=== PATIENT | male | born 1980 | race Caucasian/White ===

== ENCOUNTER 2017-11-18 06:23 | Day surgery (SDC) | payer OTHER ==
[~2017-11-18 06:23] MED LIST: Buffered Lidocaine 0.9% SYRIN* 5 ML/SYR SYRINGE INTRADERM ONE; NS 0.9% 1000 ML* 1,000 ML IV SCH
[2017-11-18] MEDS ORDERED: fentaNYL* 50 MCG/ML 2 ML VIAL (100 MCG VIAL) ONE (07:10)
[2017-11-18] MEDS ORDERED: Midazolam* 1 MG/ML 2 ML VIAL (2 MG) ONE ×2 (07:10→08:13)
[2017-11-18] MEDS ORDERED: Ondansetron ODT TAB* 4 MG ONE (07:19)
[2017-11-18] MEDS ORDERED: Famotidine IV* 10 MG/ML 2 ML (20 mg) ONE (07:20)
[2017-11-18] MEDS ORDERED: Tetracaine 0.5% OPTH.SOL 4 ML* 1 DROP BTL ONE (07:23)
[2017-11-18] MEDS ORDERED: Neomycin/Polymy/Dex OPHTH.OIN* 3.5 GM ONE (07:23)
[2017-11-18] MEDS ORDERED: BSS OPTH.SOL* BTL ONE (07:23)
[2017-11-18] MEDS ORDERED: Phenylephrine 2.5% OPTH.SOL* 2 ML BTL ONE (07:23)
[2017-11-18] MEDS ORDERED: Dexamethasone IV* 4 MG/ML 1 ML (4 MG) ONE ×2 (07:33→07:50)
[2017-11-18] MEDS ORDERED: Propofol* 10 MG/ML 20 ML BTL IV PUSH ONE (07:33)
[2017-11-18] MEDS ORDERED: Lidocaine 2% MPF* 2 ML VIAL ONE ×2 (07:33→07:42)
[2017-11-18] MEDS ORDERED: Ketorolac INJ* 30 MG/ML 1 ML VIAL ONE (07:42)
[2017-11-18] MEDS ORDERED: DiMENhydriNATE IV* 50 MG/ML VIAL ONE (07:50)
[2017-11-18] MEDS ORDERED: PROCHLORPERAZINE INJ 5 MG/ML 2 ML VIAL IV PRN (07:57)
[2017-11-18] MEDS ORDERED: Levalbuterol 0.63MG/3ML NEB* UNIT OF USE INH PRN (07:57)
[2017-11-18] MEDS ORDERED: Ondansetron INJ* 2 MG/ML VIAL IV PRN (07:57)
[2017-11-18] MEDS ORDERED: fentaNYL* 50 MCG/ML 2 ML VIAL (100 MCG VIAL) IV PRN (07:57)
[2017-11-18] MEDS ORDERED: Naloxone* 0.4 MG/ML 1 ML VIAL IV PRN (07:57)
[2017-11-18] MEDS ORDERED: Acetaminophen TAB* 325 MG PO PRN (07:57)
[2017-11-18] MEDS ORDERED: HYDROcodone/ACETAMIN 5-325 MG* 1 TAB PO PRN (07:57)
[2017-11-18] MEDS ORDERED: Ondansetron ODT TAB* 4 MG PO PRN (07:57)
[2017-11-18 09:23] VITALS: BP 117/92
--- NOTE | 2017-11-19 06:17 | OP ---
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 ANESTHESIA: General. 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 POST-OP DIAGNOSIS: Consecutive exotropia of 8 prism diopters. OPERATIVE PROCEDURE: Recess lateral rectus muscle, right eye 4.0 mm. BLOOD LOSS: Minimum. DESCRIPTION OF PROCEDURE: The patient was brought to the operating room and received general anesthesia. A drop of tetracaine and a drop of phenylephrine were placed in each eye. The patient was prepped and draped in the usual sterile fashion for ophthalmic surgery. As the patient had previous eye muscle surgery and we were unsure what was done, both eyes were prepped and draped. A speculum was placed in the left eye where a forced duction was performed and found to be normal. The hint of a nasal-conjunctival scar is noted. The speculum was then placed into the right eye where forced ductions were placed and found to be normal. Also the hint of a nasal scar was noted. Thus, the plan to recess the right lateral rectus muscle stayed in place. The right eye was grasped near the limbus in the inferotemporal quadrant and brought to superonasal gaze. An inferotemporal fornix incision was created with a Soraida scissors. Tenon's capsule was violated. The lateral rectus was isolated on a Yared muscle hook. Conjunctiva was reflected over the surface of the muscle. The muscle was cleaned with sharp and blunt dissection. A double-arm 6-0 Vicryl suture was woven to the muscle and locked at either end. The muscle was disinserted from the globe. The original insertion site was grasped with interrupted locking forceps. A regis was made on the sclera 4.0 mm posterior to the original insertion with a caliper. The muscle was recessed to this point. The sutures were trimmed. The muscle was found to be in good position. The locking forceps were removed. A small amount of cauterization was performed to achieve hemostasis at the original insertion site. The conjunctiva was then closed with interrupted 6-0 gut sutures. The speculum was removed. Topical tetracaine and Maxitrol ointment was placed on the surface of the eye. The patient was sent to the recovery room in stable condition with postop instructions and followup appointment given. [id number] #: [id number] FRAN
== END 2017-11-18 09:19 | disposition home or self-care (01) ==
LOC: OREAST 06:23
PROVIDERS: ATTEND Ophthalmology
DX: H50.15 Alternating exotropia (principal); J45.909 Unspecified asthma, uncomplicated
CPT/HCPCS: A9270-GY; J1100; J1240; J1885; J2250; J2704; J3010